=== PATIENT | female | born 1985 | race Caucasian/White ===

== ENCOUNTER → 2021-07-26 | Outpatient (CLI) | payer OTHER ==
[~2021-07-26] MED LIST: IBUPROFEN600 MG PO
== END ==
LOC: HEART 5 09:24
DX: R06.02 Shortness of breath (principal)
CPT/HCPCS: 94060; 94729

== ENCOUNTER → 2021-12-19 | Outpatient (CLI) | payer OTHER | LOC: KOH-I 08:00 | DX: R93.89 Abnormal findings on diagnostic imaging of other specified body structures (principal); R59.1 Generalized enlarged lymph nodes | CPT/HCPCS: 71250 ==